=== PATIENT | male | born 2000 | race Two or more races ===

== ENCOUNTER 2023-05-03 23:16 | Inpatient (IN) | payer MEDICAID ==
[~2023-05-03] VITALS: Ht 167.6 cm; Wt 81.6 kg
[2023-05-03 23:47] LABS: BASOPHILS % (AUTO) 0.4 % (0.0-2.0); EOSINOPHILS % (AUTO) 1.4 % (1.0-6.0); HEMATOCRIT 44.6 % (41-53); HEMOGLOBIN 15.2 g/dL (13.5-17.5); LYMPHOCYTES # (AUTO) 1.5 K/uL (1.0-4.8); LYMPHOCYTES % (AUTO) 17.4 % (22.0-44.0); MEAN CORPUSCULAR VOLUME 85 fL (80-100); MONOCYTES # (AUTO) 0.5 K/uL (0.1-1.0); NEUTROPHILS # (AUTO) 6.3 K/uL (1.8-7.7); NEUTROPHILS % (AUTO) 74.8 % (40.0-70.0); PLATELET COUNT (AUTO) 307 K/uL (150-450); RED BLOOD CELL COUNT(AUTO) 5.22 MIL/uL (4.50-5.90); RED CELL DISTRIBUTION WIDTH 13.1 % (11.5-14.5)
[2023-05-03 23:56] LABS: ANION GAP 15 mmol/L (8-16); CARBON DIOXIDE 28 mmol/L (22-29); CHLORIDE 101 mmol/L (98-107); CREATININE 0.92 mg/dL (0.60-1.30); GLOMERULAR FILTR. RATE CALC > 60 mL/min (>60); GLUCOSE,RANDOM 148 mg/dL (70-110); POTASSIUM 3.6 mmol/L (3.5-5.1); SODIUM SERUM 144 mmol/L (136-145)
[2023-05-04 00:02] LABS: ALANINE AMINOTRANSFERASE 22 U/L (12-78); ALKALINE PHOSPHATASE 121 U/L (46-116); ASPARTATE AMINOTRANSFERASE 13 U/L (15-37); BILIRUBIN,TOTAL 0.4 mg/dL (0.1-1.0); TOTAL PROTEIN, SERUM 7.2 g/dL (6.4-8.2)
[2023-05-04 00:43] LABS: COVID AG,FIA SOURCE NASOPHARYNGEAL
[2023-05-04] MEDS ORDERED: HALOPERIDOL 5 MG TABLET PO PRN (01:45)
[2023-05-04] MEDS ORDERED: LORazepam 2 MG TABLET PO PRN (01:45)
[2023-05-04 04:30] VITALS: BP 127/73; PULSE 77; RESP 18; TEMP 97.8; O2SAT 97
[2023-05-04 08:13] VITALS: BP 108/65; PULSE 63; RESP 18; TEMP 97.6; O2SAT 99
[2023-05-04] MEDS: OLANZapine 10 MG TABLET PO SCH ×2 (10:26→16:31)
[2023-05-04] MEDS: SERTRALINE HCL 100 MG TABLET PO SCH (10:26)
[2023-05-04] MEDS ORDERED: DOCUSATE SODIUM 100 MG CAPSULE PO PRN (11:30)
[2023-05-04] MEDS ORDERED: NICOTINE 14 MG/24 HOUR PATCH TD PRN (11:30)
[2023-05-04] MEDS ORDERED: MAGNESIUM HYDROXIDE SUSPENSION 30 ML UDCUP PO PRN (11:30)
[2023-05-04] MEDS ORDERED: GuaiFENesin/D-METHORPHAN [SUGAR-FREE] 200-20MG/10 ML SYRUP UDCUP PO PRN (11:30)
[2023-05-04] MEDS ORDERED: ONDANSETRON HCL 4 MG TABLET PO PRN (11:30)
[2023-05-04] MEDS ORDERED: LOPERAMIDE HCL 2 MG CAPSULE PO PRN (11:30)
[2023-05-04] MEDS ORDERED: IBUPROFEN 400 MG TABLET PO PRN (11:30)
[2023-05-04] MEDS ORDERED: MAG HYDROX/AL HYDROX/SIMETH ES 30 ML SUSPENSION UDCUP PO PRN (11:30)
[2023-05-04] MEDS ORDERED: PETROLATUM,WHITE 28 GM JELLY TP PRN (11:30)
[2023-05-04] MEDS ORDERED: CloNIDine HCL 0.1 MG TABLET PO PRN (11:30)
[2023-05-04] MEDS ORDERED: ALBUTEROL SULFATE HFA 90 MCG/PUFF 8 GM INHALER IH PRN (11:30)
[2023-05-04] MEDS ORDERED: ACETAMINOPHEN 325 MG TABLET PO PRN (11:30)
[2023-05-04 20:34] VITALS: BP 119/65; PULSE 64; RESP 19; TEMP 97.9; O2SAT 96
[2023-05-05 08:16] VITALS: BP 117/73; PULSE 74; RESP 19; TEMP 97.8; O2SAT 98
[2023-05-05 08:49] LABS: BASOPHILS % (AUTO) 0.4 % (0.0-2.0); EOSINOPHILS % (AUTO) 2.9 % (1.0-6.0); HEMATOCRIT 43.5 % (41-53); HEMOGLOBIN 14.4 g/dL (13.5-17.5); LYMPHOCYTES # (AUTO) 1.7 K/uL (1.0-4.8); LYMPHOCYTES % (AUTO) 26.2 % (22.0-44.0); MEAN CORPUSCULAR HGB CONC 33.2 G/dL (31.0-37.0); MEAN CORPUSCULAR VOLUME 87 fL (80-100); MONOCYTES # (AUTO) 0.4 K/uL (0.1-1.0); MONOCYTES % (AUTO) 5.4 % (2.0-9.0); NEUTROPHILS # (AUTO) 4.2 K/uL (1.8-7.7); NEUTROPHILS % (AUTO) 65.1 % (40.0-70.0); PLATELET COUNT (AUTO) 255 K/uL (150-450); RED BLOOD CELL COUNT(AUTO) 4.98 MIL/uL (4.50-5.90); RED CELL DISTRIBUTION WIDTH 12.9 % (11.5-14.5)
[2023-05-05 09:07] LABS: APPEARANCE,URINE HAZY (CLEAR); BILIRUBIN,URINE NEGATIVE (NEGATIVE); GLUCOSE, URINE (UA) NEGATIVE (NEGATIVE); KETONES,URINE NEGATIVE (NEGATIVE); LEUKOCYTE ESTERASE ,URINE NEGATIVE (NEGATIVE); NITRATE,URINE NEGATIVE (NEGATIVE); OCCULT BLOOD,URINE NEGATIVE (NEGATIVE); PROTEIN,URINE 30-70 mg/dL (NEGATIVE); SPECIFIC GRAVITIY, URINE 1.025 (1.003-1.030); UROBILINOGEN,URINE <=1.0 mg/dL (<=1.0)
[2023-05-05 09:17] LABS: AMPHET/METH SCREEN,URINE NEGATIVE (NEGATIVE); BARBITURATE SCREEN, URINE NEGATIVE (NEGATIVE); BENZODIAZEPINES SCREEN,URINE NEGATIVE (NEGATIVE); CANNABINOID SCREEN,URINE NEGATIVE (NEGATIVE); COCAINE SCREEN,URINE NEGATIVE (NEGATIVE); METHADONE SCREEN, URINE NEGATIVE (NEGATIVE); OPIATE SCREEN,URINE NEGATIVE (NEGATIVE); PHENCYCLIDINE SCREEN,URINE NEGATIVE (NEGATIVE)
[2023-05-05 09:19] LABS: ALANINE AMINOTRANSFERASE 14 U/L (12-78); ALBUMIN 3.4 g/dL (3.4-5.0); ALKALINE PHOSPHATASE 86 U/L (46-116); ANION GAP 9 mmol/L (8-16); ASPARTATE AMINOTRANSFERASE 10 U/L (15-37); BILIRUBIN,TOTAL 0.5 mg/dL (0.1-1.0); CALCIUM, TOTAL 8.7 mg/dL (8.8-10.5); CARBON DIOXIDE 29 mmol/L (22-29); CHLORIDE 105 mmol/L (98-107); CREATININE 0.94 mg/dL (0.60-1.30); GLOMERULAR FILTR. RATE CALC > 60 mL/min (>60); GLUCOSE,RANDOM 90 mg/dL (70-110); POTASSIUM 4.2 mmol/L (3.5-5.1); SODIUM SERUM 143 mmol/L (136-145); THYROID STIMULATING HORMONE 0.43 uIU/mL (0.36-3.74); TOTAL PROTEIN, SERUM 6.3 g/dL (6.4-8.2)
[2023-05-05 09:23] LABS: HEMOGLOBIN A1C 5.3 % (3.8-5.6)
[2023-05-05] MEDS: SERTRALINE HCL 100 MG TABLET PO SCH (09:28)
[2023-05-05] MEDS: OLANZapine 10 MG TABLET PO SCH ×2 (09:28→16:38)
[2023-05-05 09:44] LABS: CHOL/HDL RATIO 3.6 (4.2-7.3); CHOLESTEROL 160 mg/dL (131-200); HDL CHOLESTEROL 44 mg/dL (40-60); LDL CHOL (CALC.) 95 mg/dL (0-130); TRIGLYCERIDES 107 mg/dL (15-150)
[2023-05-05 20:32] VITALS: RESP 18; TEMP 98.1
[2023-05-06 08:29] VITALS: BP 110/61; PULSE 59; RESP 18; TEMP 97.8; O2SAT 98
[2023-05-06] MEDS: SERTRALINE HCL 100 MG TABLET PO SCH (08:30)
[2023-05-06] MEDS: OLANZapine 10 MG TABLET PO SCH ×2 (08:30→16:34)
[2023-05-06] MEDS ORDERED: SERT-440 PO (11:24)
[2023-05-06] MEDS ORDERED: SERTRALINE HCL 100 MG TABLET PO SCH (11:30)
[2023-05-06 20:19] VITALS: BP 116/85; PULSE 72; RESP 20; TEMP 97.9; O2SAT 98
[2023-05-07 08:34] VITALS: BP 110/76; PULSE 63; RESP 16; TEMP 97.9; O2SAT 97
[2023-05-07] MEDS: OLANZapine 10 MG TABLET PO SCH ×2 (08:58→16:26)
[2023-05-07] MEDS: SERTRALINE HCL 100 MG TABLET PO SCH (08:59)
[2023-05-07 21:00] VITALS: BP 115/70; PULSE 61; RESP 18; TEMP 97.2; O2SAT 95
[2023-05-08 08:53] VITALS: BP 113/70; PULSE 59; RESP 17; TEMP 98; O2SAT 97
[2023-05-08] MEDS: OLANZapine 10 MG TABLET PO SCH ×2 (09:15→16:51)
[2023-05-08] MEDS: SERTRALINE HCL 100 MG TABLET PO SCH (09:15)
[2023-05-08 20:44] VITALS: BP 116/72; PULSE 65; RESP 19; TEMP 98.5; O2SAT 95
[2023-05-09 08:21] VITALS: BP 109/71; PULSE 60; RESP 17; TEMP 97.6; O2SAT 97
[2023-05-09] MEDS: OLANZapine 10 MG TABLET PO SCH ×2 (08:58→17:06)
[2023-05-09] MEDS: SERTRALINE HCL 100 MG TABLET PO SCH (08:59)
[2023-05-09] MEDS: ZOLPIDEM TARTRATE 10 MG TABLET PO PRN (20:18)
[2023-05-09 20:50] VITALS: BP 114/70; PULSE 69; RESP 17; TEMP 98.4; O2SAT 96
[2023-05-10 08:33] VITALS: BP 119/59; PULSE 69; RESP 18; TEMP 98; O2SAT 97
[2023-05-10] MEDS: OLANZapine 10 MG TABLET PO SCH ×2 (08:41→17:04)
[2023-05-10] MEDS: SERTRALINE HCL 100 MG TABLET PO SCH (08:42)
[2023-05-10 20:24] VITALS: BP 117/68; PULSE 72; RESP 18; TEMP 97.8; O2SAT 100
[2023-05-10] MEDS: ZOLPIDEM TARTRATE 10 MG TABLET PO PRN (20:34)
[2023-05-11 08:31] VITALS: BP 116/67; PULSE 64; RESP 18; TEMP 97.9; O2SAT 100
[2023-05-11] MEDS: OLANZapine 10 MG TABLET PO SCH ×2 (08:49→17:31)
[2023-05-11] MEDS: SERTRALINE HCL 100 MG TABLET PO SCH (08:49)
[2023-05-11 20:24] VITALS: BP 123/74; PULSE 83; RESP 18; TEMP 97.9; O2SAT 97
[2023-05-12 08:29] VITALS: BP 105/62; PULSE 74; RESP 17; TEMP 97.7; O2SAT 97
[2023-05-12] MEDS: SERTRALINE HCL 100 MG TABLET PO SCH (09:53)
[2023-05-12] MEDS: OLANZapine 10 MG TABLET PO SCH ×2 (09:53→17:07)
[2023-05-12 20:22] VITALS: BP 106/67; PULSE 74; RESP 19; TEMP 98; O2SAT 98
[2023-05-13 08:29] VITALS: BP 108/64; PULSE 73; RESP 18; TEMP 97.5; O2SAT 97
[2023-05-13] MEDS: OLANZapine 10 MG TABLET PO SCH ×2 (09:23→16:38)
[2023-05-13] MEDS: SERTRALINE HCL 100 MG TABLET PO SCH (09:23)
[2023-05-13 21:17] VITALS: BP 122/80; PULSE 77; RESP 18; TEMP 98.2; O2SAT 98
[2023-05-14 08:15] VITALS: BP 121/74; PULSE 78; RESP 18; TEMP 97.6; O2SAT 97
[2023-05-14] MEDS: SERTRALINE HCL 100 MG TABLET PO SCH (08:38)
[2023-05-14] MEDS: OLANZapine 10 MG TABLET PO SCH ×2 (08:38→16:42)
[2023-05-14 20:24] VITALS: BP 110/76; PULSE 77; RESP 19; TEMP 98; O2SAT 97
[2023-05-15 08:29] VITALS: BP 110/67; PULSE 68; RESP 18; TEMP 97.7; O2SAT 95
[2023-05-15] MEDS: OLANZapine 10 MG TABLET PO SCH ×2 (08:48→16:43)
[2023-05-15] MEDS: SERTRALINE HCL 100 MG TABLET PO SCH (08:48)
[2023-05-15 20:14] VITALS: BP 110/62; PULSE 71; RESP 18; TEMP 97.3; O2SAT 96
[2023-05-16 08:48] VITALS: BP 100/76; PULSE 68; RESP 18; TEMP 97.9; O2SAT 96
[2023-05-16] MEDS: SERTRALINE HCL 100 MG TABLET PO SCH (09:14)
[2023-05-16] MEDS: OLANZapine 10 MG TABLET PO SCH ×2 (09:14→16:07)
[2023-05-16 20:34] VITALS: BP 121/64; PULSE 70; RESP 19; TEMP 98.7; O2SAT 95
[2023-05-17 08:09] VITALS: BP 119/63; PULSE 72; RESP 18; TEMP 98; O2SAT 98
[2023-05-17] MEDS: SERTRALINE HCL 100 MG TABLET PO SCH (08:18)
[2023-05-17] MEDS: OLANZapine 10 MG TABLET PO SCH ×2 (08:18→15:59)
[2023-05-17 20:02] VITALS: BP 119/68; PULSE 73; RESP 18; TEMP 98.2; O2SAT 94
[2023-05-18 08:04] VITALS: BP 114/66; PULSE 81; RESP 19; TEMP 97.8; O2SAT 97
[2023-05-18] MEDS: SERTRALINE HCL 100 MG TABLET PO SCH (08:51)
[2023-05-18] MEDS: OLANZapine 10 MG TABLET PO SCH ×2 (08:51→16:31)
[2023-05-18 20:25] VITALS: BP 118/79; PULSE 78; RESP 17; TEMP 97.6; O2SAT 98
[2023-05-19 08:07] VITALS: BP 108/63; PULSE 67; RESP 19; TEMP 97.4; O2SAT 97
[2023-05-19] MEDS: SERTRALINE HCL 100 MG TABLET PO SCH (09:02)
[2023-05-19] MEDS: OLANZapine 10 MG TABLET PO SCH ×2 (09:02→17:26)
[2023-05-19 20:30] VITALS: BP 111/60; PULSE 67; RESP 17; TEMP 97.8; O2SAT 99
[2023-05-20] MEDS: SERTRALINE HCL 100 MG TABLET PO SCH (08:04)
[2023-05-20] MEDS: OLANZapine 10 MG TABLET PO SCH (08:04)
[2023-05-20 08:12] VITALS: BP 115/67; PULSE 84; RESP 17; TEMP 98.1; O2SAT 97
[2023-05-20] MEDS ORDERED: OLAN10TA74 PO (15:55)
[2023-05-20] MEDS ORDERED: SERT-440 PO (15:55)
== END 2023-05-20 15:15 | disposition home or self-care (01) | DRG 750 ==
LOC: EMS 23:20 → B2S 05-04 01:30
PROVIDERS: ADMIT Psychiatry & Neurology Child & Adolescent Psychiatry; ATTEND Psychiatry & Neurology Child & Adolescent Psychiatry
DX: F25.1 Schizoaffective disorder, depressive type (principal); R45.851 Suicidal ideations; F12.90 Cannabis use, unspecified, uncomplicated; F41.9 Anxiety disorder, unspecified; G47.00 Insomnia, unspecified; Z20.822 Contact with and (suspected) exposure to COVID-19; F17.210 Nicotine dependence, cigarettes, uncomplicated; R73.9 Hyperglycemia, unspecified
CPT/HCPCS: 80053; 80061; 80307; 81003; 83036; 84443; 85025; 99285; G0480; 36415-L1; 36415-TC; Z7502; Z7610